=== PATIENT | female | born 1950 | race Caucasian/White ===

== ENCOUNTER 2019-08-21 10:43 | Outpatient (REF) | payer MEDICARE, BC, SELFPAY ==
[2019-08-21 22:13] LABS: Calculated LDL 92 mg/dL; Cholesterol 165 mg/dL (50-200); HDL Cholesterol 52 mg/dL (40-60); Triglyceride 109 mg/dL (30-150)
== END 2019-08-21 11:03 ==
LOC: NCHCN 10:43
PROVIDERS: Visit Provider Internal Medicine
DX: Z13.6 Encounter for screening for cardiovascular disorders (principal); R69 Illness, unspecified
CPT/HCPCS: 80061

== ENCOUNTER 2021-04-29 13:42 | Outpatient (REF) | payer MEDICARE, BC, SELFPAY ==
[2021-04-29 15:32] LABS: HCT 35.9 % (36.0-46.0); HGB 11.8 g/dL (11.2-15.7); MCH 30.6 pg (27.0-33.0); MCHC 32.9 % (32.0-36.0); MPV 9.3 fL (8.0-11.0); Platelet Count 365 10^3/uL (130-400); RBC 3.86 10^6/uL (3.93-5.22); RDW 14.6 % (11.7-14.6); RDW-SD 48.9 fL; WBC 3.43 10^3/uL (4.4-10.8)
[2021-04-29 15:51] LABS: ALT 32 U/L (14-59); AST 24 U/L (15-37); Alkaline Phosphatase 112 U/L (46-116); BUN 18 mg/dL (7-18); Bilirubin, Total 0.5 mg/dL (0.2-1.0); CREATININE 1.1 mg/dL (0.55-1.02); Calcium 9.2 mg/dL (8.5-10.1); Chloride 101 mmol/L (98-107); Estimated GFR 48.69 (mL/min/1.73m2); Glucose 91 mg/dL (74-106); Potassium 4.7 mmol/L (3.5-5.1); Sodium 137 mmol/L (136-145); Total Protein 6.8 g/dL (6.4-8.2)
== END 2021-04-29 13:43 | disposition home or self-care (01) ==
LOC: NCHCN 13:42
PROVIDERS: Visit Provider Internal Medicine
DX: D62 Acute posthemorrhagic anemia (principal); E87.1 Hypo-osmolality and hyponatremia; I95.9 Hypotension, unspecified
CPT/HCPCS: 80053; 82533; 85027

== ENCOUNTER 2021-12-13 21:05 | Outpatient (REF) | payer MEDICARE, BC, SELFPAY ==
[2021-12-13 21:28] LABS: Abs Immature Grans 0.02 10^3/uL (0.0-0.06); Absolute Basophil Count 0.06 10^3/uL (0.0-0.2); Absolute Eosinophil Count 0.12 10^3/uL (0.0-0.7); Absolute Lymphocyte Count 1.37 10^3/uL (1.2-3.4); Absolute Monocyte Count 0.65 10^3/uL (0.1-0.8); Absolute Neutrophil Count 4.72 10^3/uL (1.2-6.7); Basophils % 0.9; Eosinophils % 1.7; HCT 39.4 % (36.0-46.0); Immature Grans % 0.3; Lymphocytes % 19.7; MCH 31.2 pg (27.0-33.0); MCV 94.5 fL (80-95); MPV 9.1 fL (8.0-11.0); Monocytes % 9.4; Nucleated RBC 0 %; Platelet Count 313 10^3/uL (130-400); RBC 4.17 10^6/uL (3.93-5.22); RDW 13.3 % (11.7-14.6); RDW-SD 46.1 fL; WBC 6.94 10^3/uL (4.4-10.8)
[2021-12-13 21:48] LABS: Anion Gap 7.4 mmol/L (3-11); BUN 20 mg/dL (7-18); CO2 28.6 mmol/L (21.0-32.0); CREATININE 0.9 mg/dL (0.55-1.02); Calcium 9.3 mg/dL (8.5-10.1); Chloride 98 mmol/L (98-107); Glucose 90 mg/dL (74-106); Potassium 4.2 mmol/L (3.5-5.1); Sodium 134 mmol/L (136-145)
== END 2021-12-13 21:06 | disposition home or self-care (01) ==
LOC: NCHCN 21:05
PROVIDERS: Visit Provider Internal Medicine
DX: R53.1 Weakness (principal)
CPT/HCPCS: 80048; 85025

== ENCOUNTER 2022-05-20 15:18 | Outpatient (REF) | payer MEDICARE, BC, SELFPAY ==
[2022-05-20 15:23] LABS: Abs Immature Grans 0.01 10^3/uL (0.0-0.06); Absolute Basophil Count 0.06 10^3/uL (0.0-0.2); Absolute Eosinophil Count 0.11 10^3/uL (0.0-0.7); Absolute Lymphocyte Count 1.25 10^3/uL (1.2-3.4); Absolute Monocyte Count 0.61 10^3/uL (0.1-0.8); Absolute Neutrophil Count 2.97 10^3/uL (1.2-6.7); Basophils % 1.2; Eosinophils % 2.2; HCT 38.7 % (36.0-46.0); HGB 13.4 g/dL (11.2-15.7); Immature Grans % 0.2; MCH 31.7 pg (27.0-33.0); MCHC 34.6 % (32.0-36.0); MCV 92 fL (80-95); MPV 9.4 fL (8.0-11.0); Monocytes % 12.2; Neutrophils % 59.2; Platelet Count 342 10^3/uL (130-400); RBC 4.23 10^6/uL (3.93-5.22); RDW 13.9 % (11.7-14.6); RDW-SD 46.5 fL; WBC 5.01 10^3/uL (4.4-10.8)
[2022-05-20 15:58] LABS: Vitamin B12 1289 pg/mL (193-986)
[2022-05-20 16:13] LABS: Folate > 20.0 ng/mL (8.6-20.0)
== END 2022-05-20 15:19 | disposition home or self-care (01) ==
LOC: NCHCN 15:18
PROVIDERS: Visit Provider Registered Nurse
DX: D62 Acute posthemorrhagic anemia (principal); E53.8 Deficiency of other specified B group vitamins
CPT/HCPCS: 82607; 82746; 85025

== ENCOUNTER 2024-12-11 13:44 | Outpatient (REF) | payer MEDICARE, MEDICAID, SELFPAY ==
[2024-12-11 16:00] LABS: TSH 3.33 uIU/mL (0.36-3.74)
[2024-12-11 16:04] LABS: Vitamin B12 > 2000 pg/mL (193-986)
== END 2024-12-11 13:45 | disposition home or self-care (01) ==
LOC: NCHCN 13:44
PROVIDERS: Visit Provider Internal Medicine
DX: R41.89 Other symptoms and signs involving cognitive functions and awareness (principal)
CPT/HCPCS: 82607; 84443